=== PATIENT | female | born 2000 | race Caucasian/White ===

== ENCOUNTER → 2023-07-04 07:19 | Outpatient (CLI) | payer OTHER, SELFPAY ==
[2023-07-04 07:48] LABS: Add Manual Diff / Slide Review NO; Basophils Absolute Auto 100 /uL (0-100); Basophils Percent Auto 0.7 % (0-2); Eosinophils Absolute Auto 200 /uL (0-450); Eosinophils Percent Auto 1.9 % (2-4); Hematocrit 37.3 % (36-46); Hemoglobin 12.3 g/dL (12.0-16.0); Lymphocytes Absolute Auto 1800 /uL (1100-4500); Lymphocytes Percent Auto 22.1 % (25-40); Mean Corpuscular HGB Conc 33.1 % (30-36); Mean Corpuscular Hemoglobin 25.8 PG (26-34); Mean Corpuscular Volume 77.9 fL (80-100); Monocytes Absolute Auto 500 /uL (0-900); Monocytes Percent Auto 6.5 % (3-14); Neutrophils Absolute Auto 5600 /uL (1500-7000); Neutrophils Percent Auto 68.8 % (50-75); Platelet Count 288 X10^3/uL (150-400); Red Blood Cell Count 4.78 X10^6/uL (4.0-5.2); White Blood Cell Count 8.1 X10^3/uL (4.5-11.0)
[2023-07-04 08:02] LABS: Alanine Aminotransferase 20 IU/L (<35); Aspartate Aminotransferase 19 IU/L (14-36); BUN Creatinine Ratio 18.3 (6-22); Blood Urea Nitrogen 11 mg/dL (7-17); Estimated Glomerular Filt Rate > 60 mL/min (>60); Uric Acid 4.8 mg/dL (2.5-6.2)
[2023-07-04 08:20] LABS: Free T3, Triiodothyronine Free 3.45 pg/mL (2.77-5.27); Free T4, Direct Thyroxine 0.84 ng/dL (0.78-2.19)
[2023-07-04 08:38] LABS: Hepatitis B Surface Antigen NEGATIVE s/c (NEGATIVE)
[2023-07-04 08:52] LABS: HIV 1 & 2 Ab/Ag 4th Gen Combo NEGATIVE (NEGATIVE); Hep C Virus Ab w/Reflex Quant REACTIVE s/c (NEGATIVE)
[2023-07-05 01:14] LABS: RPR Screen Non Reactive (Non Reactive)
[2023-07-05 10:25] LABS: Varicella IgG Antibody 715 index (Immune >165)
== END ==
PROVIDERS: Specialist; PCP Registered Nurse; Referring Provider Obstetrics & Gynecology; Visit Provider Obstetrics & Gynecology
DX: O13.9 Gestational [pregnancy-induced] hypertension without significant proteinuria, unspecified trimester (principal); E05.90 Thyrotoxicosis, unspecified without thyrotoxic crisis or storm; Z3A.00 Weeks of gestation of pregnancy not specified
CPT/HCPCS: 36415; 80055; 82565; 84439; 84443; 84450; 84460; 84481; 84520; 84550; 86787; 86803; 86850; 86900; 86901; 87086; 87389; 87522

== ENCOUNTER → 2023-07-07 11:00 | Outpatient (CLI) | payer OTHER, SELFPAY ==
[2023-07-07 15:08] LABS: Urine N gonorrhoeae NOT DETECTED
[2023-07-07 15:32] LABS: Urine Chlamydia NOT DETECTED
== END ==
PROVIDERS: PCP Registered Nurse; Visit Provider Specialist
DX: Z34.81 Encounter for supervision of other normal pregnancy, first trimester (principal)
CPT/HCPCS: 87491; 87591

== ENCOUNTER → 2023-07-07 12:41 | Outpatient (CLI) | payer OTHER, SELFPAY ==
--- NOTE | 2023-07-07 | DI.US.S_ITS ---
PROCEDURE: US THYROID INDICATIONS: ABNORMAL TSH TECHNIQUE: Real-time scanning was performed of the thyroid gland, with image documentation. COMPARISON: None. FINDINGS: Right: Thyroid lobe measures 4.8 x 1.7 x 2.5 cm, and is homogeneous in echotexture. Left: Thyroid lobe measures 4.9 x 1.3 x 2.0 cm, and is homogenous in echotexture. Isthmus: 5.0 mm thick. Nodule number: 1 Location: Left inferior Size: 1.4 x 0.6 x 1.2 cm. Composition: Solid Echogenicity: Hypoechoic Shape: wider than tall. Margins: Lobulated and ill-defined Echogenic foci: Macrocalcification Total points: 7 ACR TI-RADS category: 5 Nodule number: 2 Location: Right superior Size: 0.9 x 0.7 x 0.9 cm. Composition: Predominantly solid Echogenicity: Hypoechoic Shape: wider than tall. Margins: Ill-defined Echogenic foci: Non Total points: 4 ACR TI-RADS category: 4 IMPRESSION: Category 5 nodule on the left. FNA advised. Category 4 nodule on the right. Best practice guidelines suggest no follow-up ACR TI-RADS definitions and recommendations: TI-RADS 1 (benign): 0 points. FNA not needed. TI-RADS 2 (not suspicious): 2 points. FNA not needed. TI-RADS 3 (mildly suspicious): 3 points. * FNA if 2.5 cm or larger, follow up if 1.5 cm or larger (at 1, 3, and 5 years). TI-RADS 4 (moderately suspicious): 4-6 points. * FNA if 1.5 cm or larger, follow up if 1 cm or larger (at 1, 2, 3, and 5 years). TI-RADS 5 (highly suspicious): 7 points or more. * FNA if 1 cm or larger, follow up if 0.5 cm or larger (every year for 5 years). Approved by: Fly Jacques M.D. on 07/07/2023 at 20:04
== END ==
PROVIDERS: PCP Registered Nurse; Referring Provider Registered Nurse; Visit Provider Registered Nurse
DX: O99.280 Endocrine, nutritional and metabolic diseases complicating pregnancy, unspecified trimester (principal); E04.2 Nontoxic multinodular goiter; Z3A.00 Weeks of gestation of pregnancy not specified; R79.89 Other specified abnormal findings of blood chemistry
CPT/HCPCS: 76536; 87491; 87591

== ENCOUNTER 2023-07-10 14:15 | Emergency (ER) | payer OTHER, SELFPAY ==
[2023-07-10] VITALS (26 sets, daily range): BP systolic 114–141; BP diastolic 64–95; PULSE 78–92; RESP 12–24; TEMP 36.6; O2SAT 97–100; BMI 46.3
[2023-07-10 14:57] LABS: Add Manual Diff / Slide Review NO; Basophils Absolute Auto 100 /uL (0-100); Basophils Percent Auto 0.8 % (0-2); Eosinophils Absolute Auto 100 /uL (0-450); Eosinophils Percent Auto 1.2 % (2-4); Hematocrit 37.1 % (36-46); Hemoglobin 12.1 g/dL (12.0-16.0); Lymphocytes Absolute Auto 1600 /uL (1100-4500); Lymphocytes Percent Auto 14.8 % (25-40); Mean Corpuscular HGB Conc 32.7 % (30-36); Mean Corpuscular Hemoglobin 25.5 PG (26-34); Monocytes Absolute Auto 400 /uL (0-900); Neutrophils Absolute Auto 8700 /uL (1500-7000); Neutrophils Percent Auto 79.2 % (50-75); Platelet Count 282 X10^3/uL (150-400); Red Blood Cell Count 4.76 X10^6/uL (4.0-5.2); Red Cell Distribution Width 16.2 % (11.6-14.8)
--- NOTE | 2023-07-10 15:00 | DI.RAD.S_ITS ---
PROCEDURE: XR CHEST 1V INDICATIONS: palpitations, +preg 8 weeks reported TECHNIQUE: One view of the chest was acquired. COMPARISON: None. FINDINGS: Surgical changes and devices: None. Lungs and pleura: Lungs are clear. No pleural effusions or pneumothorax. Mediastinum: Mediastinal contours appear normal. Heart size is normal. Bones and chest wall: No suspicious bony lesions. Overlying soft tissues appear unremarkable. IMPRESSION: No acute cardiopulmonary abnormality. Dictated by: Prosper Menchaca M.D. on 07/10/2023 at 15:49 Approved by: Prosper Menchaca M.D. on 07/10/2023 at 15:49
[2023-07-10 15:14] LABS: Appearance Urine UA CLEAR; Bilirubin Urine UA NEGATIVE (NEGATIVE); Color Urine UA YELLOW; Glucose Urine UA NEGATIVE (Negative); Ketones Urine UA NEGATIVE (NEGATIVE); Leukocyte Esterase Urine UA NEGATIVE (NEGATIVE); Nitrite Urine UA NEGATIVE (Negative); Occult Blood Urine UA NEGATIVE (Negative); Protein Urine UA NEGATIVE (Negative); Specific Gravity Urine UA 1.025 (1.000-1.035); Urobilinogen Urine UA 0.2 E.U./dL (0.2)
[2023-07-10 15:14] LABS: Creatine Kinase 172 U/L (30-135)
[2023-07-10 15:16] LABS: Alanine Aminotransferase 22 IU/L (<35); Albumin Globulin Ratio 1.2 (1.0-2.8); Alkaline Phosphatase 113 U/L (38-126); Aspartate Aminotransferase 21 IU/L (14-36); BUN Creatinine Ratio 20.7 (6-22); Bilirubin Total 0.2 mg/dL (0.2-1.3); Blood Urea Nitrogen 12 mg/dL (7-17); Calcium 8.8 mg/dL (8.4-10.2); Carbon Dioxide 23 mmol/L (22-32); Chloride 102 mmol/L (98-107); Estimated Glomerular Filt Rate > 60 mL/min (>60); Globulin 3.4 g/dL (1.7-4.1); Glucose 112 mg/dL (70-100); HEMOLYSIS < 15 (0-50); Potassium 3.4 mmol/L (3.4-5.1); Sodium 133 mmol/L (137-145); Total Protein 7.4 g/dL (6.3-8.2)
[2023-07-10 15:25] LABS: pH Urine UA 5.5 (4.5-8.0)
[2023-07-10 15:27] LABS: Bacteria Urine Few (2-10); Culture Indicated Urine Cult Not Indicated; RBC Urine None Seen (0-5/HPF); Squamous Epithelial Cell Urine 5-10 /HPF (0-5/HPF); WBC Urine 0-1/HPF (0-5/HPF)
[2023-07-10 15:27] LABS: Troponin I < 0.012 ng/mL (0.01-0.034)
[2023-07-10 15:46] LABS: Free T4, Direct Thyroxine 0.78 ng/dL (0.78-2.19)
[2023-07-10 16:00] LABS: Thyroid Stimulating Hormone 0.097 uIU/mL (0.47-4.68)
[2023-07-10] MEDS: ACETAMINOPHEN 325 MG TABLET 975 MG PO (18:38)
[2023-07-10] MEDS: SODIUM CHLORIDE 0.9% 1,000 ML 1000 ML IV (18:39)
--- NOTE | 2023-07-10 18:51 | ED.ARRPALP ---
HPI - Arrhythmia/Palpitations General Chief Complaint: Arrhythmia/Palpitations Stated Complaint: Racing heart earlier Time Seen by Provider: 07/10/23 14:36 Source: patient Mode of arrival: Ambulatory History of Present Illness HPI narrative: Patient 23-year-old female his currently 9 weeks history of gestational hypertension presenting today with palpitations. She reports that she was at work sitting down getting ready to do a facial when she felt like she might pass out. She went encountered her heart rate for 1 minute and it was in the 180s. She monitored it manually reports that it was in the 180s for about 40 minutes and she did not feel very well. She contacted her OB who recommended that she come to the ED for evaluation. She says heart rate improved into the 150s, and now she is in a sinus rhythm in the 80s and 90s. She now has a slight headache she has no abdominal pain or vaginal bleeding. She reports morning sickness with some mild nausea. She is no fever or chills. She also says that she it was recently diagnosed with hyperthyroid she is taking medication she would an ultrasound which did see thyroid nodules. Related Data Home Medications Medication Instructions Recorded Confirmed [id number] 400 mcg-om3 35 mg-dha 25 tab PO 06/25/23 07/07/23 mg-epa 5 mg-fish oil chewable tablet nifedipine 30 mg tablet,extended 30 mg PO DAILY 06/25/23 07/07/23 release pyridoxine (vitamin B6) 100 mg 100 mg PO DAILY PRN nausea 06/25/23 07/07/23 tablet Previous Rx's Medication Instructions Recorded propylthiouracil 50 mg tablet 100 mg PO TID #90 tabs 06/25/23 Allergies Allergy/AdvReac Type Severity Reaction Status Date / Time No Known Drug Allergies Allergy Verified 07/10/23 15:22 Review of Systems Review of Systems ROS Unobtainable: All systems reviewed & are unremarkable except as noted in HPI and below Patient History Medical History Depression (~2012) Hypothyroidism Obesity PIH ( induced hypertension) anxiety Pyelonephritis (~03/2023) Sepsis (~03/2023) Surgical History [place] teeth extracted Family History Father Family estrangement Mother Family estrangement Social History marital status: number of children: 1 household members: spouse and children lives independently: Yes caregiver/support person: Yes housing: apartment pets and animals: Yes (dog) education level: college (some college) 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) current occupational exposures/hazards: No special katy needs: No travel history: over 6 months ago seatbelt use: always water heater temp set < 120 deg: Yes working smoke detector in home: Yes fire extinguisher in home: Yes carbon monox detector in home: Yes firearms in home: No do you feel safe at home: Yes Smoking Status: Never smoker second hand exposure: No alcohol intake: former (1-2/week when not ) substance use type: does not use during the past year weight has: decreased > 10 lbs (~30lb r/t hyperthyroidism) well-balanced diet: daily or most days daily servings fruits/ve or more times/day caffeine: Yes (coffee/tea, usually 1/day) Type(s) of exercise: walking frequency: daily duration: 15-30 minutes/day Smoking Status: Never smoker alcohol intake frequency: 0-2 drinks per day Substance Use Type: does not use Exam Initial Vital Signs Initial Vital Signs: Vital Signs Temperature 97.9 F 07/10/23 14:23 Pulse Rate 80 07/10/23 14:23 Respiratory Rate 20 07/10/23 14:23 Blood Pressure 131/95 H 07/10/23 14:23 Pulse Oximetry 100 07/10/23 14:23 Oxygen Delivery Method Room Air 07/10/23 14:23 GENERAL: Alert pleasant 23-year-old and in no acute distress. HEENT: Head atraumatic,EOMI, pupils reactive, face symmetric, moist mucous membranes CARDIOVASCULAR: Regular rate and rhythm without murmurs, rubs or gallops. RESPIRATORY: Breath sounds equal bilaterally, no wheezes rales or rhonchi. ABDOMEN: Soft, nontender. Normoactive bowel sounds all 4 quadrants. No guarding or rebound. EXTREMITIES: Normal range of motion, no clubbing or edema. Neurovascularly intact NEUROLOGICAL: Alert and oriented x4. SKIN: Warm, dry, no laceration, no petechiae, no rashes or lesions. Course Orders Ordered: Discontinued Medications Acetaminophen (Acetaminophen 325 Mg Tablet) 975 mg PO NOW ONE Stop: 07/10/23 18:34 Last Admin: 07/10/23 18:38 Dose: 975 mg Documented By: WESLY Sodium Chloride (Normal Saline 0.9%) 1,000 mls @ 1,000 mls/hr IV BOLUS ONE Stop: 07/10/23 19:32 Last Infusion: 07/10/23 19:37 Dose: 0 mls/hr Documented By: Admin: 07/10/23 18:39 Dose: 1,000 mls/hr Documented By: WESLY Vital Signs Vital signs: Vital Signs - 8 hr 07/10/23 14:23 07/10/23 14:34 07/10/23 14:38 Temperature 97.9 F Pulse Rate 80 85 Respiratory Rate 20 14 Blood Pressure 131/95 H 135/78 Pulse Oximetry 100 97 Oxygen Delivery Method Room Air 07/10/23 14:45 07/10/23 15:11 07/10/23 15:15 Temperature Pulse Rate 79 84 92 H Respiratory Rate 22 16 21 Blood Pressure Pulse Oximetry 99 98 100 Oxygen Delivery Method 07/10/23 15:30 07/10/23 15:45 07/10/23 16:00 Temperature Pulse Rate 87 88 83 Respiratory Rate 22 19 Blood Pressure Pulse Oximetry 99 98 98 Oxygen Delivery Method 07/10/23 16:03 07/10/23 16:03 07/10/23 16:15 Temperature Pulse Rate 79 80 Respiratory Rate 17 22 Blood Pressure 132/69 Pulse Oximetry 98 97 Oxygen Delivery Method 07/10/23 16:30 07/10/23 16:30 07/10/23 16:39 Temperature Pulse Rate 85 87 Respiratory Rate 18 12 Blood Pressure 140/78 Pulse Oximetry 99 99 Oxygen Delivery Method 07/10/23 16:39 07/10/23 16:45 07/10/23 17:00 Temperature Pulse Rate 90 Respiratory Rate 22 Blood Pressure 141/70 H 128/69 Pulse Oximetry 98 Oxygen Delivery Method 07/10/23 17:00 07/10/23 17:15 07/10/23 17:15 Temperature Pulse Rate 81 87 Respiratory Rate 19 23 Blood Pressure 129/80 Pulse Oximetry 98 100 Oxygen Delivery Method 07/10/23 17:30 07/10/23 17:30 07/10/23 17:45 Temperature Pulse Rate 82 Respiratory Rate 20 Blood Pressure 131/80 122/71 Pulse Oximetry 99 Oxygen Delivery Method 07/10/23 17:45 07/10/23 18:00 07/10/23 18:00 Temperature Pulse Rate 85 78 Respiratory Rate 18 17 Blood Pressure 114/64 Pulse Oximetry 99 98 Oxygen Delivery Method 07/10/23 18:15 07/10/23 18:15 07/10/23 18:30 Temperature Pulse Rate 90 Respiratory Rate 16 Blood Pressure 117/72 126/72 Pulse Oximetry 99 Oxygen Delivery Method 07/10/23 18:30 07/10/23 18:45 07/10/23 18:45 Temperature Pulse Rate 86 81 Respiratory Rate 22 21 Blood Pressure 125/68 Pulse Oximetry 98 99 Oxygen Delivery Method MDM - Arrhythmia/Palpitations Lab Data 07/10/23 14:45 07/10/23 14:45 Labs: Lab Results 07/10/23 07/10/23 07/10/23 Range/Units 14:45 14:45 14:45 WBC 11.0 (4.5-11.0) X10^3/uL RBC 4.76 (4.0-5.2) X10^6/uL Hgb 12.1 (12.0-16.0) g/dL Hct 37.1 (36-46) % MCV 78.0 L (80-100) fL MCH 25.5 L (26-34) PG MCHC 32.7 (30-36) % RDW 16.2 H (11.6-14.8) % Plt Count 282 (150-400) X10^3/uL Neut % (Auto) 79.2 H (50-75) % Lymph % (Auto) 14.8 L (25-40) % [place] % (Auto) 4.0 (3-14) % Eos % (Auto) 1.2 L (2-4) % Baso % (Auto) 0.8 (0-2) % Neut # (Auto) 8700 H (8940-9983) /uL Lymph # (Auto) 1600 (4623-1227) /uL [place] # (Auto) 400 (0-900) /uL Eos # (Auto) 100 (0-450) /uL Baso # (Auto) 100 (0-100) /uL Sodium 133 L (137-145) mmol/L Potassium 3.4 (3.4-5.1) mmol/L Chloride 102 (98-107) mmol/L Carbon Dioxide 23 (22-32) mmol/L BUN 12 (7-17) mg/dL Creatinine 0.58 (0.52-1.04) mg/dL Estimated GFR > 60 (>60) mL/min BUN/Creatinine Ratio 20.7 (6-22) Glucose 112 H (70-100) mg/dL Calcium 8.8 (8.4-10.2) mg/dL Total Bilirubin 0.2 (0.2-1.3) mg/dL AST 21 (14-36) IU/L ALT 22 (<35) IU/L Alkaline Phosphatase 113 (38-126) U/L Total Creatine Kinase (30-135) U/L Troponin I (0.01-0.034) ng/mL Total Protein 7.4 (6.3-8.2) g/dL Albumin 4.0 (3.5-5.0) g/dL Globulin 3.4 (1.7-4.1) g/dL Albumin/Globulin Ratio 1.2 (1.0-2.8) TSH 0.097 L D (0.47-4.68) uIU/mL Free T4 0.78 (0.78-2.19) ng/dL Urine Color Urine Appearance Urine pH (4.5-8.0) Ur Specific [place] (1.000-1.035) Urine Protein (Negative) Urine Glucose (UA) (Negative) g/dL Urine Ketones (NEGATIVE) Urine Occult Blood (Negative) Urine Nitrate (Negative) Urine Bilirubin (NEGATIVE) Urine Urobilinogen (0.2) E.U./dL Ur Leukocyte Esterase (NEGATIVE) Urine RBC (0-5/HPF) Urine WBC (0-5/HPF) Ur Squamous Epith Cells (0-5/HPF) Urine Bacteria (None) Ur Culture Indicated? 07/10/23 07/10/23 Range/Units 14:45 15:02 WBC (4.5-11.0) X10^3/uL RBC (4.0-5.2) X10^6/uL Hgb (12.0-16.0) g/dL Hct (36-46) % MCV (80-100) fL MCH (26-34) PG MCHC (30-36) % RDW (11.6-14.8) % Plt Count (150-400) X10^3/uL Neut % (Auto) (50-75) % Lymph % (Auto) (25-40) % [place] % (Auto) (3-14) % Eos % (Auto) (2-4) % Baso % (Auto) (0-2) % Neut # (Auto) (8455-2531) /uL Lymph # (Auto) (0100-0961) /uL [place] # (Auto) (0-900) /uL Eos # (Auto) (0-450) /uL Baso # (Auto) (0-100) /uL Sodium (137-145) mmol/L Potassium (3.4-5.1) mmol/L Chloride (98-107) mmol/L Carbon Dioxide (22-32) mmol/L BUN (7-17) mg/dL Creatinine (0.52-1.04) mg/dL Estimated GFR (>60) mL/min BUN/Creatinine Ratio (6-22) Glucose (70-100) mg/dL Calcium (8.4-10.2) mg/dL Total Bilirubin (0.2-1.3) mg/dL AST (14-36) IU/L ALT (<35) IU/L Alkaline Phosphatase (38-126) U/L Total Creatine Kinase 172 H (30-135) U/L Troponin I < 0.012 (0.01-0.034) ng/mL Total Protein (6.3-8.2) g/dL Albumin (3.5-5.0) g/dL Globulin (1.7-4.1) g/dL Albumin/Globulin Ratio (1.0-2.8) TSH (0.47-4.68) uIU/mL Free T4 (0.78-2.19) ng/dL Urine Color Yellow Urine Appearance Clear Urine pH 5.5 (4.5-8.0) Ur Specific [place] 1.025 (1.000-1.035) Urine Protein Negative (Negative) Urine Glucose (UA) Negative (Negative) g/dL Urine Ketones Negative (NEGATIVE) Urine Occult Blood Negative (Negative) Urine Nitrate Negative (Negative) Urine Bilirubin Negative (NEGATIVE) Urine Urobilinogen 0.2 (0.2) E.U./dL Ur Leukocyte Esterase Negative (NEGATIVE) Urine RBC None seen (0-5/HPF) Urine WBC 0-1/hpf (0-5/HPF) Ur Squamous Epith Cells 5-10 /hpf H (0-5/HPF) Urine Bacteria Few (2-10) H (None) Ur Culture Indicated? Cult not indicated Point of Care Testing Test Results Positive Urine Dip Bedside Urine Glucose Negative Bedside Urine Bilirubin - Negative Bedside Urine Ketone - Negative Urine Specific [place] 1.025 Bedside Urine Occult Blood - Negative Bedside Urine pH 6.0 Bedside Urine Protein - Negative Bedside Urine Urobilinogen - Negative Bedside Urine Nitrite - Negative Bedside Urine Leukocytes - Negative Esterase Imaging Data Chest x-ray: Radiologist's Impresson: PROCEDURE:? XR CHEST 1V ? INDICATIONS:? palpitations, +preg 8 weeks reported ? TECHNIQUE:? One view of the chest was acquired.? ? COMPARISON:? None. ? FINDINGS:? ? Surgical changes and devices:? None.? ? Lungs and pleura:? Lungs are clear.? No pleural effusions or pneumothorax.? ? Mediastinum:? Mediastinal contours appear normal.? Heart size is normal.? ? Bones and chest wall:? No suspicious bony lesions.? Overlying soft tissues appear unremarkable.? ? IMPRESSION:? No acute cardiopulmonary abnormality. ? ? ? Dictated by: Prosper Menchaca M.D. on 07/10/2023 at 15:49? ECG Data Interpretation: Sinus rhythm rate 81 MT interval 170 QRS [address] changes no T-wave inversions MDM Narrative Medical decision making narrative: Patient is a 23-year-old female currently 9 weeks presenting with palpitations today manual count by herself reports heart rate in the 180s for 40 minutes. Her TSH is actually improving an almost normal I do not suspect it is related to her thyroid. I suspect that she may have an episode of SVT. She is been in sinus rhythm here blood work is overall reassuring. Strongly encourage her to get a Holter monitor. If it returns she is encouraged to come to the ED so we can see the rhythm. She is having a mild headache given IV fluids and Tylenol. No evidence of infection. She is followed closely with Ob. Blood pressures are stable. Discharge Plan Departure Patient Disposition: Home Clinical Impression: Palpitations Instructions: DI for Paroxysmal Supraventricular Tachycardia, DI for Palpitations Activity Restrictions/Additional Instructions: *You have been diagnosed with heart palpitations *What to do: At this time I suspect you had something called SVT. If it happens again return to the ED so we can get it on the monitor. You do need do need a Holter monitor which can be set up with your OB or PCP. Things to try at home would be a wrist monitor. You may also try and bear down to see if your heart rate slows down. *Continue to take medications as directed *Follow up with your primary care provider in 2-3 days or call [phone] *Return to ER if you should have increased palpitations dizziness lightheadedness persistent heart rate greater than 130 for more than 30 minutes return to ED or any new, worsening or concerning symptoms Prescriptions: No Action propylthiouracil 50 mg tablet 100 mg PO TID Qty: 90 2RF [id number] oil 400 mcg-35 mg -25 mg-5 mg tablet,chewable PO pyridoxine (vitamin B6) 100 mg tablet 100 mg PO DAILY PRN (Reason: nausea) nifedipine 30 mg tablet extended release 30 mg PO DAILY Referrals: Caterina Silva ARNP [Primary Care Provider] - Stand Alone Forms: Patient Portal/API
== END 2023-07-10 19:40 | disposition home or self-care (01) ==
PROVIDERS: Emergency Medicine; Nurse Practitioner Critical Care Medicine; Emergency Provider Emergency Medicine; PCP Registered Nurse
DX: O26.91 Pregnancy related conditions, unspecified, first trimester (principal); R00.2 Palpitations; Z3A.09 9 weeks gestation of pregnancy
CPT/HCPCS: 36415; 71045; 80053; 81001; 81003; 81025; 82550; 84439; 84443; 84484; 85025; 93005; 93010; 96360; 99284

== ENCOUNTER → 2023-07-28 13:07 | Outpatient (CLI) | payer OTHER, SELFPAY ==
--- NOTE | 2023-07-28 | PATH_ITS ---
Note [facility] Accession Number: [id number] TESTS RESULT FLAG UNITS REF RANGE LAB Clinician Provided Cytology Information No. of containers..02 Previously Prepared Cytology Slide 35 Unknown Storage/container code(s) Source: [A] 01 LEFT THYROID NODULE DIAGNOSIS: [A] 01 LEFT THYROID NODULE SUSPICIOUS FOR MALIGNANCY. [place] CATEGORY V. SUSPICIOUS FOR PAPILLARY CARCINOMA. SPECIMEN CONSISTS OF FOLLICULAR CELLS WITH NUCLEAR ENLARGEMENT, NUCLEAR PALLOR WITH GROOVES. INTRANUCLEAR PSEUDOINCLUSIONS ARE PRESENT. THIS PATTERN IS SUSPICIOUS FOR PAPILLARY CARCINOMA. Pathologist ICD10: 01 R89.6 Signed out by: Mary Kay Palma MD, Pathologist NPI- [id number] Performed by: Jarrod Diggs, Hide Sorter ([facility]) Gross description: 30 CC, COLORLESS, CLEAR RECIEVED: IN CYTOLYT WITH 6 ALCOHOL FIXED AND 6 QUICK STAINED SLIDES ALSO 1 RNA VIAL WAS RECEIVED.VO /VDU 07/29/2023 0715 Local FLAG LEGEND: L-Low Normal,H-High Normal,LL-Alert Low,HH-Alert High <-Panic Low,>-Panic High,A-Abnormal,AA-Critical Abnormal Performed at: 01 =Z [facility] [address], [place] [address] Chris Kelly MD, Performed at: [facility] [address], [place], [place] [id number] MD Chris Kelly MD Phone: [phone]
--- NOTE | 2023-07-28 | DI.US.S_ITS ---
PROCEDURE: US FINE NEEDLE ASPIRATION INDICATIONS: THYROID NODULE TECHNIQUE: The indications, alternatives, benefits, risks, and complications of the procedure were explained to the patient. Written informed consent was obtained and placed in the chart. The thyroid region was examined sonographically and a site was chosen for ultrasound guided percutaneous sampling. The skin was prepared and draped in the usual fashion, and anesthetized with 1% lidocaine infiltrated from the skin down to the thyroid gland. Multiple passes were then performed, with contents emptied into an appropriate pathology specimen container. A bandage was applied to the area of access at completion of the study. COMPARISON: [facility], US, US THYROID, 07/07/2023, 13:03. FINDINGS: Location(s) of lesion(s) sampled: Left lobe inferior, nodule #1 [place]: 25 gauge hypodermic needles. Number of passes: 7 Medications: 1% lidocaine for local anaesthesia. Complications: None. IMPRESSION: Successful ultrasound-guided thyroid nodule fine needle aspiration, with cytology results pending. Please see chart below for management recommendations based on cytology results. [facility] ReportingRecommendationsNon-diagnostic* Repeat US-guided FNA, with on-site cytology evaluation if possible. * Repeated non-diagnostic nodules without high suspicion US features: close observation vs surgical consult. * Consider surgery if nodule has high suspicion US features, grows >20% in 2 dimensions on followup, or patient has clinical risk factors for malignancy. Benign* If nodule has high suspicion US features: repeat US and FNA within 12 months. * If nodule has low to intermediate suspicion US features: repeat US at 12-24 months. If nodule grows (20% increase in at least 2 dimensions, with minimal increase of 2 mm or >50% change in volume), or development of new suspicious US features, then repeat FNA or continue followup. * If nodule has very low suspicion US features: followup US at >24 months. Atypia of undetermined significance, follicular lesion of undetermined significanceRepeat FNA, molecular testing, followup US, or surgical consult.Follicular neoplasm, suspicious for follicular neoplasmSurgical consult; also consider molecular testing. Suspicious for malignancySurgical consult.MalignantSurgical consult. Dictated by: Shon Gupta M.D. on 07/28/2023 at 14:56 Approved by: Shon Gupta M.D. on 07/28/2023 at 14:58
== END ==
LOC: US 13:08
PROVIDERS: PCP Registered Nurse; Referring Provider Registered Nurse; Visit Provider Registered Nurse
DX: E05.10 Thyrotoxicosis with toxic single thyroid nodule without thyrotoxic crisis or storm (principal)
CPT/HCPCS: 10005

== ENCOUNTER → 2023-08-05 10:20 | Outpatient (CLI) | payer OTHER, SELFPAY ==
[2023-08-05 12:22] LABS: Free T4, Direct Thyroxine 0.96 ng/dL (0.78-2.19)
[2023-08-05 12:36] LABS: Thyroid Stimulating Hormone 0.535 uIU/mL (0.47-4.68)
== END ==
PROVIDERS: PCP Registered Nurse; Referring Provider Obstetrics & Gynecology; Visit Provider Obstetrics & Gynecology
DX: E05.90 Thyrotoxicosis, unspecified without thyrotoxic crisis or storm (principal)
CPT/HCPCS: 36415; 84439; 84443

== ENCOUNTER → 2023-09-02 11:55 | Outpatient (CLI) | payer OTHER, SELFPAY ==
[2023-09-04 21:40] LABS: AFP Value 24.2 ng/mL (.); Gest Age on Col Date 16.4 weeks (.); Insulin Dep Diabetes No (.); OSBR Risk 1IN 10000 (.); Results Report (.); Test Results *Screen Negative* (.)
== END ==
PROVIDERS: PCP Registered Nurse; Referring Provider Specialist; Visit Provider Specialist
DX: Z34.92 Encounter for supervision of normal pregnancy, unspecified, second trimester (principal); Z3A.16 16 weeks gestation of pregnancy
CPT/HCPCS: 36415; 82105

== ENCOUNTER 2023-10-20 12:28 | Emergency (ER) | payer OTHER, SELFPAY ==
[2023-10-20 12:37] VITALS: BP 143/77; PULSE 100; RESP 16; TEMP 36; O2SAT 98; BMI 45.9
[2023-10-20] MEDS: SODIUM CHLORIDE 0.9% 1,000 ML 1000 ML IV (12:52)
[2023-10-20] MEDS: ONDANSETRON 4 MG ODT SL (12:52)
[2023-10-20 13:13] LABS: Add Manual Diff / Slide Review NO; Basophils Absolute Auto 0 /uL (0-100); Basophils Percent Auto 0.3 % (0-2); Eosinophils Absolute Auto 0 /uL (0-450); Eosinophils Percent Auto 0.4 % (2-4); Hematocrit 38.2 % (36-46); Hemoglobin 13.5 g/dL (12.0-16.0); Lymphocytes Absolute Auto 900 /uL (1100-4500); Lymphocytes Percent Auto 10.1 % (25-40); Mean Corpuscular HGB Conc 35.3 % (30-36); Mean Corpuscular Hemoglobin 29.5 PG (26-34); Mean Corpuscular Volume 83.4 fL (80-100); Monocytes Absolute Auto 200 /uL (0-900); Monocytes Percent Auto 2.9 % (3-14); Neutrophils Absolute Auto 7500 /uL (1500-7000); Neutrophils Percent Auto 86.3 % (50-75); Platelet Count 199 X10^3/uL (150-400); Red Blood Cell Count 4.58 X10^6/uL (4.0-5.2); Red Cell Distribution Width 15.1 % (11.6-14.8); White Blood Cell Count 8.7 X10^3/uL (4.5-11.0)
[2023-10-20 13:24] LABS: Alanine Aminotransferase 28 IU/L (<35); Albumin 3.9 g/dL (3.5-5.0); Albumin Globulin Ratio 1.1 (1.0-2.8); Alkaline Phosphatase 85 U/L (38-126); Aspartate Aminotransferase 24 IU/L (14-36); BUN Creatinine Ratio 14.3 (6-22); Bilirubin Total 0.6 mg/dL (0.2-1.3); Blood Urea Nitrogen 8 mg/dL (7-17); Calcium 8.9 mg/dL (8.4-10.2); Carbon Dioxide 20 mmol/L (22-32); Chloride 108 mmol/L (98-107); Estimated Glomerular Filt Rate > 60 mL/min (>60); Globulin 3.6 g/dL (1.7-4.1); Glucose 96 mg/dL (70-100); HEMOLYSIS < 15 (0-50); Lipase 44 U/L (23-300); Potassium 3.6 mmol/L (3.4-5.1); Sodium 136 mmol/L (137-145); Total Protein 7.5 g/dL (6.3-8.2)
--- NOTE | 2023-10-20 13:58 | ED.NAVMDI ---
HPI - Nausea/Vomiting/Diarrhea <Jens Nuñez PA-C - Last Filed: 10/20/23 16:22> General Chief complaint: Nausea/Vomiting/Diarrhea Stated complaint: nausea vommiting Time Seen by Provider: 10/20/23 13:01 Source: patient Mode of arrival: Ambulatory History of Present Illness HPI Narrative: This is a 23-year-old female presenting to the emergency department who is 20 weeks due to acute onset nausea and vomiting for the last day. She was states that her family has norovirus she suspects this is similar. She states that she vomited ?a lot? of times. Denies any blood in the vomit. Denies any distinct abdominal pain, abdominal cramping, pelvic pain, vaginal bleeding, fevers, or any other concerning signs or symptoms. Related Data Home Medications Medication Instructions Recorded Confirmed [id number] 400 mcg-om3 35 mg-dha 25 tab PO 06/25/23 10/31/23 mg-epa 5 mg-fish oil chewable tablet pyridoxine (vitamin B6) 100 mg 100 mg PO DAILY PRN nausea 06/25/23 10/31/23 tablet Previous Rx's Medication Instructions Recorded propylthiouracil 50 mg tablet 100 mg (2 x 50 mg) PO TID #90 tabs 06/25/23 nifedipine 30 mg tablet,extended 30 mg PO BID #60 tabs 09/10/23 release ondansetron 4 mg disintegrating 4 mg PO Q6H PRN nausea and 10/20/23 tablet vomiting #20 tabs Allergies Allergy/AdvReac Type Severity Reaction Status Date / Time No Known Drug Allergies Allergy Verified 10/31/23 16:04 Review of Systems <Jens Nuñez PA-C - Last Filed: 10/20/23 16:22> Review of Systems Narrative: GENERAL: Denies chills, fatigue, malaise, fever, sweats. HEENT: Denies sinus pain, ear pain, sore throat, difficulty swallowing, dizziness. RESPIRATORY: Denies dyspnea, cough, wheezing, hemoptysis, sputum. CARDIOVASCULAR: Denies chest pain, palpitations, orthopnea, edema, GASTROINTESTINAL: Reports nausea and vomiting, denies abdominal pain, diarrhea, constipation, melena. : Denies dysuria, frequency, incontinence, hematuria, urinary retention. MUSCULOSKELETAL: denies weakness, joint pain, or bony pain SKIN: Denies rash, skin lesions, or other NEUROLOGIC: Denies weakness, headache, numbness, change in speech, confusion, seizures, incoordination. PSYCHIATRIC: No concerning psychosocial issues. 12 point review of systems is negative except for those stated above Patient History <Jens Nuñez PA-C - Last Filed: 10/20/23 16:22> Medical History (Updated 10/26/23 @ 14:14 by Jessica Giraldo MD) Eczema (~1998) Asthma (~2001) Anxiety (~2021) Pyelonephritis (~03/2023) Sepsis (~03/2023) Obesity anxiety Depression (~2012) Hypothyroidism PIH ( induced hypertension) Surgical History [place] teeth extracted Family History (Updated 07/16/23 @ 20:46 by Cara Khanna) Father Family estrangement Mother Family estrangement Grandmother Hypertension Mental health problem Social History marital status: number of children: 1 household members: spouse and children lives independently: Yes caregiver/support person: Yes housing: apartment pets and animals: Yes (dog) education level: college (some college) 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) current occupational exposures/hazards: No special katy needs: No travel history: over 6 months ago seatbelt use: always water heater temp set < 120 deg: Yes working smoke detector in home: Yes fire extinguisher in home: Yes carbon monox detector in home: Yes firearms in home: No do you feel safe at home: Yes Smoking Status: Never smoker second hand exposure: No alcohol intake: former (1-2/week when not ) substance use type: does not use during the past year weight has: decreased > 10 lbs (~30lb r/t hyperthyroidism) well-balanced diet: daily or most days daily servings fruits/ve or more times/day caffeine: Yes (coffee/tea, usually 1/day) Type(s) of exercise: walking frequency: daily duration: 15-30 minutes/day Smoking Status: Never smoker alcohol intake frequency: 0-2 drinks per day Substance Use Type: does not use Exam <Jens Nuñez PA-C - Last Filed: 10/20/23 16:22> Narrative Exam Narrative: GENERAL: Well-developed patient, in mild distress. HEAD: Atraumatic. Normocephalic. EYES: Pupils equal round and reactive. Extraocular motions intact. No scleral icterus. No injection or drainage. ENT: Nose without bleeding, purulent drainage. Throat without erythema, tonsillar hypertrophy or exudate. Airway patent. NECK: Trachea midline. Non tender CARDIOVASCULAR: Regular rate and rhythm without murmurs, gallops, or rubs. RESPIRATORY: Clear to auscultation. Breath sounds equal bilaterally. No wheezes, rales, or rhonchi. GASTROINTESTINAL: Abdomen soft, non-tender, nondistended. EXTREMITIES: No edema or joint tenderness. BACK: Nontender without deformity or crepitance. No flank tenderness. NEURO: AOx3. SKIN: No rash or erythema of visible areas Initial Vital Signs Initial Vital Signs: Vital Signs Temperature 96.8 F L 10/20/23 12:37 Pulse Rate 100 H 10/20/23 12:37 Respiratory Rate 16 10/20/23 12:37 Blood Pressure 143/77 H 10/20/23 12:37 Pulse Oximetry 98 10/20/23 12:37 Oxygen Delivery Method Room Air 10/20/23 12:37 <Harvey Conklin MD - Last Filed: 11/03/23 12:55> Initial Vital Signs Initial Vital Signs: Vital Signs Temperature 96.8 F L 10/20/23 12:37 Pulse Rate 100 H 10/20/23 12:37 Respiratory Rate 16 10/20/23 12:37 Blood Pressure 143/77 H 10/20/23 12:37 Pulse Oximetry 98 10/20/23 12:37 Oxygen Delivery Method Room Air 10/20/23 12:37 Course <Jens Nuñez PA-C - Last Filed: 10/20/23 16:22> Orders Ordered: Discontinued Medications Sodium Chloride (Normal Saline 0.9%) 1,000 mls @ 1,000 mls/hr IV BOLUS ONE Stop: 10/20/23 13:45 Last Infusion: 10/20/23 13:47 Dose: Infused Documented By: Admin: 10/20/23 12:52 Dose: 1,000 mls/hr Documented By: INDY Ondansetron HCl (Ondansetron 4 Mg/2 Ml Inj) 4 mg IV NOW PRN PRN Reason: Nausea And Vomiting Ondansetron HCl (Ondansetron 4 Mg Odt) 4 mg SL NOW ONE Stop: 10/20/23 12:47 Last Admin: 10/20/23 12:52 Dose: 4 mg Documented By: INDY Vital Signs Vital signs: Vital Signs - 8 hr 10/20/23 12:37 Temperature 96.8 F L Pulse Rate 100 H Respiratory Rate 16 Blood Pressure 143/77 H Pulse Oximetry 98 Oxygen Delivery Method Room Air <Harvey Conklin MD - Last Filed: 11/03/23 12:55> Orders Ordered: Discontinued Medications Sodium Chloride (Normal Saline 0.9%) 1,000 mls @ 1,000 mls/hr IV BOLUS ONE Stop: 10/20/23 13:45 Last Infusion: 10/20/23 13:47 Dose: Infused Documented By: Admin: 10/20/23 12:52 Dose: 1,000 mls/hr Documented By: INDY Ondansetron HCl (Ondansetron 4 Mg/2 Ml Inj) 4 mg IV NOW PRN PRN Reason: Nausea And Vomiting Ondansetron HCl (Ondansetron 4 Mg Odt) 4 mg SL NOW ONE Stop: 10/20/23 12:47 Last Admin: 10/20/23 12:52 Dose: 4 mg Documented By: INDY Vital Signs Vital signs: Vital Signs - 8 hr 10/20/23 12:37 Temperature 96.8 F L Pulse Rate 100 H Respiratory Rate 16 Blood Pressure 143/77 H Pulse Oximetry 98 Oxygen Delivery Method Room Air MDM - Nausea/Vomiting/Diarrhea <Jens Nuñez PA-C - Last Filed: 10/20/23 16:22> Lab Data 10/20/23 13:03 10/20/23 13:03 Labs: Lab Results 10/20/23 10/20/23 Range/Units 13:03 14:15 WBC 8.7 (4.5-11.0) X10^3/uL RBC 4.58 (4.0-5.2) X10^6/uL Hgb 13.5 (12.0-16.0) g/dL Hct 38.2 (36-46) % MCV 83.4 (80-100) fL MCH 29.5 (26-34) PG MCHC 35.3 (30-36) % RDW 15.1 H (11.6-14.8) % Plt Count 199 (150-400) X10^3/uL Neut % (Auto) 86.3 H (50-75) % Lymph % (Auto) 10.1 L (25-40) % [place] % (Auto) 2.9 L (3-14) % Eos % (Auto) 0.4 L (2-4) % Baso % (Auto) 0.3 (0-2) % Neut # (Auto) 7500 H (7489-8996) /uL Lymph # (Auto) 900 L (7429-3989) /uL [place] # (Auto) 200 (0-900) /uL Eos # (Auto) 0 (0-450) /uL Baso # (Auto) 0 (0-100) /uL Sodium 136 L (137-145) mmol/L Potassium 3.6 (3.4-5.1) mmol/L Chloride 108 H (98-107) mmol/L Carbon Dioxide 20 L (22-32) mmol/L BUN 8 (7-17) mg/dL Creatinine 0.56 (0.52-1.04) mg/dL Estimated GFR > 60 (>60) mL/min BUN/Creatinine Ratio 14.3 (6-22) Glucose 96 (70-100) mg/dL Calcium 8.9 (8.4-10.2) mg/dL Total Bilirubin 0.6 (0.2-1.3) mg/dL AST 24 (14-36) IU/L ALT 28 (<35) IU/L Alkaline Phosphatase 85 (38-126) U/L Total Protein 7.5 (6.3-8.2) g/dL Albumin 3.9 (3.5-5.0) g/dL Globulin 3.6 (1.7-4.1) g/dL Albumin/Globulin Ratio 1.1 (1.0-2.8) Lipase 44 (23-300) U/L Ur Bilirubin Confirm Negative (Negative) Urine RBC None seen (0-5/HPF) Urine WBC 5-10/hpf H (0-5/HPF) Ur Squamous Epith Cells 5-10 /hpf H (0-5/HPF) Amorphous Sediment 1+ Urine Bacteria Occasional (0-1) (None) Urine Mucus 1+ H (Negative) Ur Culture Indicated? Specimen cultured Urine Dip Bedside Urine Glucose Negative Bedside Urine Bilirubin + 1 Bedside Urine Ketone ++ 40 Urine Specific [place] 1.030 Bedside Urine Occult Blood - Negative Bedside Urine pH 5.5 Bedside Urine Protein - Negative Bedside Urine Urobilinogen - Negative Bedside Urine Nitrite - Negative Bedside Urine Leukocytes - Negative Esterase MDM Narrative Medical decision making narrative: MDM * differential diagnosis includes but not limited to gastroenteritis, norovirus, small-bowel obstruction * Prior records reviewed: Patient has not been here for similar symptoms past * My lab interpretation: Lab work we will, leukocytosis, no significant electrolyte abnormalities * My imgaing interpretation: None obtained * Clinical Decision Rules/Scores evaluated: None * Independent discussions with: None ED Course: This is a 23-year-old female presents emergency department due to nausea and vomiting due to suspected norovirus. She is [address] Giraldo was contacted and informed that the patient was here who recommended ondansetron which was given for the patient. The patient was also given fluids. Her lab work today was unremarkable. Patient felt better after the Zofran and fluids given in. Dr. Giraldo called in prescription for Zofran to her pharmacy. heart tones were within normal limits. Shared Decision Making: Discussed plan with patient who is comfortable with the plan Social Considerations: None Disposition: Discharged to home <Harvey Conklin MD - Last Filed: 11/03/23 12:55> Lab Data Labs: Lab Results 10/20/23 10/20/23 Range/Units 13:03 14:15 WBC 8.7 (4.5-11.0) X10^3/uL RBC 4.58 (4.0-5.2) X10^6/uL Hgb 13.5 (12.0-16.0) g/dL Hct 38.2 (36-46) % MCV 83.4 (80-100) fL MCH 29.5 (26-34) PG MCHC 35.3 (30-36) % RDW 15.1 H (11.6-14.8) % Plt Count 199 (150-400) X10^3/uL Neut % (Auto) 86.3 H (50-75) % Lymph % (Auto) 10.1 L (25-40) % [place] % (Auto) 2.9 L (3-14) % Eos % (Auto) 0.4 L (2-4) % Baso % (Auto) 0.3 (0-2) % Neut # (Auto) 7500 H (9807-7494) /uL Lymph # (Auto) 900 L (9552-5015) /uL [place] # (Auto) 200 (0-900) /uL Eos # (Auto) 0 (0-450) /uL Baso # (Auto) 0 (0-100) /uL Sodium 136 L (137-145) mmol/L Potassium 3.6 (3.4-5.1) mmol/L Chloride 108 H (98-107) mmol/L Carbon Dioxide 20 L (22-32) mmol/L BUN 8 (7-17) mg/dL Creatinine 0.56 (0.52-1.04) mg/dL Estimated GFR > 60 (>60) mL/min BUN/Creatinine Ratio 14.3 (6-22) Glucose 96 (70-100) mg/dL Calcium 8.9 (8.4-10.2) mg/dL Total Bilirubin 0.6 (0.2-1.3) mg/dL AST 24 (14-36) IU/L ALT 28 (<35) IU/L Alkaline Phosphatase 85 (38-126) U/L Total Protein 7.5 (6.3-8.2) g/dL Albumin 3.9 (3.5-5.0) g/dL Globulin 3.6 (1.7-4.1) g/dL Albumin/Globulin Ratio 1.1 (1.0-2.8) Lipase 44 (23-300) U/L Ur Bilirubin Confirm Negative (Negative) Urine RBC None seen (0-5/HPF) Urine WBC 5-10/hpf H (0-5/HPF) Ur Squamous Epith Cells 5-10 /hpf H (0-5/HPF) Amorphous Sediment 1+ Urine Bacteria Occasional (0-1) (None) Urine Mucus 1+ H (Negative) Ur Culture Indicated? Specimen cultured Urine Dip Bedside Urine Glucose Negative Bedside Urine Bilirubin + 1 Bedside Urine Ketone ++ 40 Urine Specific [place] 1.030 Bedside Urine Occult Blood - Negative Bedside Urine pH 5.5 Bedside Urine Protein - Negative Bedside Urine Urobilinogen - Negative Bedside Urine Nitrite - Negative Bedside Urine Leukocytes - Negative Esterase Discharge Plan Departure Patient Disposition: Home Clinical Impression: Acute vomiting Activity Restrictions/Additional Instructions: Thank you for coming to the [facility] Emergency Department today. Your lab work today was very reassuring. There were no significant electrolyte abnormalities or evidence of infection. The norovirus is viral and should improve over time. Dr. Giraldo as already sent a prescription for Zofran to your pharmacy. I hope you feel better soon. Please follow up with your primary care provider within a week if your symptoms continue. If you do not have a primary care provider please contact the [facility] Resource line at [phone]. They will ask some questions about your medical history and help you get set up with a provider in the community. Prescriptions: No Action propylthiouracil 50 mg tablet 100 mg PO TID Qty: 90 2RF nifedipine 30 mg tablet extended release 30 mg PO BID Qty: 60 2RF ondansetron 4 mg tablet,disintegrating 4 mg PO Q6H PRN (Reason: nausea and vomiting) Qty: 20 1RF [id number] oil 400 mcg-35 mg -25 mg-5 mg tablet,chewable PO pyridoxine (vitamin B6) 100 mg tablet 100 mg PO DAILY PRN (Reason: nausea) Referrals: Caterina Silva ARNP [Primary Care Provider] - Stand Alone Forms: Patient Portal/API ED Sign-out <Harvey Conklin MD - Last Filed: 11/03/23 12:55> Cosign ED Attending Sridevi Attestation: I was immediately available in the department for consultation. This documentation has been reviewed and I agree with assessment and plan. Supervised by Harvey Conklin MD
[2023-10-20 14:50] LABS: Amorphous Sediment Urine 1+; Bacteria Urine Occasional (0-1); Culture Indicated Urine Specimen Cultured; Ictotest Urine Negative (Negative); Mucus Urine 1+ (Negative); RBC Urine None Seen (0-5/HPF); Squamous Epithelial Cell Urine 5-10 /HPF (0-5/HPF); WBC Urine 5-10/HPF (0-5/HPF)
== END 2023-10-20 14:17 | disposition home or self-care (01) ==
PROVIDERS: Emergency Medicine; Emergency Provider Physician Assistant Medical; PCP Registered Nurse
DX: O21.9 Vomiting of pregnancy, unspecified (principal); Z3A.20 20 weeks gestation of pregnancy
CPT/HCPCS: 36415; 80053; 81003; 81015; 83690; 85025; 87086; 99284

== ENCOUNTER → 2023-10-22 16:44 | Outpatient (CLI) | payer OTHER, SELFPAY ==
--- NOTE | 2023-10-22 16:46 | DI.US.S_ITS ---
PROCEDURE: US OB LIMITED INDICATIONS: GROWTH OUTSIDE/PRIOR DATING DATA: Last menstrual period (LMP): Not reported. LMP-based estimated date of delivery (EVELYN): 02/14/2024 First dating scan (date and location): 07/07/2023 Estimated date of delivery (EVELYN) from first dating scan: 02/13/2024 The calculations are made using the working EVELYN of 02/14/2024. TECHNIQUE: Real-time scanning was performed of the fetus for biophysical profile, with image documentation. Endovaginal scanning: Not indicated COMPARISON: [facility], , OB >= 14 WEEKS FETUS, 09/02/2023, 11:44. [facility], , US OB >= 14 WEEKS FETUS, 10/13/2023, 15:40. FINDINGS: General: A single living intrauterine gestation is present. Presentation: Vertex Placenta: Placental position is posterior, without previa. Amniotic fluid index: 14.8 cm, normal range is 5-24 cm. Single deepest vertical pocket is 4.2 cm. heart rate: 130 beats per minute. Maternal cervical canal: 3.6 cm long. Normal lower limit is 2.5 cm. BPD: 6.0 cm, 24 weeks, 2 days. HC: 21.7 cm, 23 weeks, 6 days. AC: 19.1 cm, 23 weeks, 6 days. FL: 4.2 cm, 23 weeks, 6 days. Estimated gestational age based on current study: 24 weeks, 0 day. Estimated gestational age from initial scan: 23 weeks, 4 days. Estimated weight: 636 g, 56%. IMPRESSION: 1. Single live intrauterine gestation with fetus in vertex presentation. heart rate is 130 beats per minute. Normal amount of amniotic fluid. HIMANSHU measures 14.8 cm. 2. Normal growth. Estimated weight is at 56%. 3. Placenta position is posterior, no placenta previa. We strive to produce accurate, complete, and clear reports of imaging services. To assist us in improving patient care, this report was composed using standard report templates and voice recognition software. Therefore, it may contain abnormal punctuation, insertions and/or omissions. Occasional wrong-word or sound-alike substitutions may occur. Though we review the report and make efforts to correct it, we do recommend that the report be read carefully in proper context to recognize any text inaccuracies. Dictated by: Memo Díaz M.D. on 10/23/2023 at 9:42 Approved by: Memo Díaz M.D. on 10/23/2023 at 9:47
== END ==
PROVIDERS: PCP Registered Nurse; Referring Provider Obstetrics & Gynecology; Visit Provider Obstetrics & Gynecology
DX: Z3A.24 24 weeks gestation of pregnancy; O16.2 Unspecified maternal hypertension, second trimester
CPT/HCPCS: 76815

== ENCOUNTER → 2023-11-06 08:09 | Outpatient (CLI) | payer OTHER, SELFPAY ==
[2023-11-06 10:17] LABS: Hematocrit 33.4 % (36-46); Hemoglobin 11.7 g/dL (12.0-16.0)
[2023-11-06 10:35] LABS: GTT (PREG) 1 Hour PP 50gm Dose 134 mg/dL (76-139)
== END ==
PROVIDERS: PCP Registered Nurse; Referring Provider Obstetrics & Gynecology; Visit Provider Obstetrics & Gynecology
DX: Z34.82 Encounter for supervision of other normal pregnancy, second trimester (principal); Z3A.26 26 weeks gestation of pregnancy
CPT/HCPCS: 36415; 82950; 85014; 85018; 86850

== ENCOUNTER 2023-11-13 09:51 | Observation (INO) | payer OTHER, SELFPAY ==
[2023-11-13 10:57] LABS: Add Manual Diff / Slide Review NO; Basophils Absolute Auto 100 /uL (0-100); Basophils Percent Auto 0.7 % (0-2); Eosinophils Absolute Auto 100 /uL (0-450); Eosinophils Percent Auto 0.6 % (2-4); Hematocrit 35.7 % (36-46); Hemoglobin 12.4 g/dL (12.0-16.0); Lymphocytes Absolute Auto 1500 /uL (1100-4500); Lymphocytes Percent Auto 17.4 % (25-40); Mean Corpuscular HGB Conc 34.6 % (30-36); Mean Corpuscular Hemoglobin 29.5 PG (26-34); Mean Corpuscular Volume 85.3 fL (80-100); Monocytes Absolute Auto 500 /uL (0-900); Monocytes Percent Auto 5.9 % (3-14); Neutrophils Absolute Auto 6600 /uL (1500-7000); Neutrophils Percent Auto 75.4 % (50-75); Platelet Count 181 X10^3/uL (150-400); Red Blood Cell Count 4.19 X10^6/uL (4.0-5.2); Red Cell Distribution Width 13.7 % (11.6-14.8); White Blood Cell Count 8.8 X10^3/uL (4.5-11.0)
[2023-11-13 11:10] LABS: Aspartate Aminotransferase 26 IU/L (14-36); Blood Urea Nitrogen 7 mg/dL (7-17); Estimated Glomerular Filt Rate > 60 mL/min (>60); Uric Acid 4.5 mg/dL (2.5-6.2)
[2023-11-13 11:47] LABS: Creatinine Urine Random 130.1 mg/dL
[2023-11-13 11:50] LABS: Protein (Total) Urine Random < 5 mg/dL (0-12); Protein Creatinine Ratio Urine 0.03 GRAM/24H
== END 2023-11-13 12:00 | disposition home or self-care (01) ==
PROVIDERS: Admitting Provider Obstetrics & Gynecology; PCP Registered Nurse; Referring Provider Obstetrics & Gynecology; Visit Provider Obstetrics & Gynecology
DX: Z36.9 Encounter for antenatal screening, unspecified (principal)
CPT/HCPCS: 59025; 82570; 84156; 84450; 84550; 85025; G0378; G0379

== ENCOUNTER → 2023-11-28 16:44 | Outpatient (CLI) | payer OTHER, SELFPAY ==
[2023-12-01 10:07] LABS: Candida species Negative (Negative); Gardnerella vaginalis Positive (Negative); Trichomoas vaginalis Negative (Negative)
== END ==
PROVIDERS: PCP Registered Nurse; Visit Provider Obstetrics & Gynecology
DX: N89.8 Other specified noninflammatory disorders of vagina (principal)
CPT/HCPCS: 87480; 87510; 87660

== ENCOUNTER 2023-12-22 09:42 | Outpatient (CLI) | payer OTHER, SELFPAY | END 2023-12-22 10:30 | disposition home or self-care (01) | LOC: LABOR 10:32 → OB 12-26 10:25 | PROVIDERS: PCP Registered Nurse; Referring Provider Obstetrics & Gynecology; Visit Provider Obstetrics & Gynecology | DX: O13.3 Gestational [pregnancy-induced] hypertension without significant proteinuria, third trimester (principal); Z3A.32 32 weeks gestation of pregnancy | CPT/HCPCS: 59025; G0378; G0379 ==

== ENCOUNTER 2023-12-30 12:47 | Outpatient (CLI) | payer OTHER, SELFPAY ==
--- NOTE | 2023-12-30 13:32 | PM.OBTRLD ---
Visit Information Visit Information Date of evaluation: 12/30/23 On-call OB Provider: Reba Benítez Reason for Evaluation: Yes non-stress test non-stress test reason: hypertension/pre-eclampsia Vital Signs Vital Signs: Blood pressure 119/62, pulse 78, temperature 36.4? COUNT INCLUDES THE [facility] Medical History (Updated 12/30/23 @ 13:33 by Reab Benítez MD) Eczema (~1998) Asthma (~2001) Anxiety (~2021) Pyelonephritis (~03/2023) Sepsis (~03/2023) anxiety Depression (~2012) Hypothyroidism PIH ( induced hypertension) Surgical History [place] teeth extracted Family History (Updated 07/16/23 @ 20:46 by Cara Khanna) Father Family estrangement Mother Family estrangement Grandmother Hypertension Mental health problem Social History marital status: number of children: 1 household members: spouse and children lives independently: Yes caregiver/support person: Yes housing: apartment pets and animals: Yes (dog) education level: college (some college) 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) current occupational exposures/hazards: No special katy needs: No travel history: over 6 months ago seatbelt use: always water heater temp set < 120 deg: Yes working smoke detector in home: Yes fire extinguisher in home: Yes carbon monox detector in home: Yes firearms in home: No do you feel safe at home: Yes Smoking Status: Never smoker second hand exposure: No alcohol intake: former (1-2/week when not ) substance use type: does not use during the past year weight has: decreased > 10 lbs (~30lb r/t hyperthyroidism) well-balanced diet: daily or most days daily servings fruits/ve or more times/day caffeine: Yes (coffee/tea, usually 1/day) Type(s) of exercise: walking frequency: daily duration: 15-30 minutes/day Evaluation Evaluation Baseline heart rate: 125 Variability: Moderate (11-25) monitor accelerations: Present Monitor Decelerations: Absent Category of Tracing: Reactive Status: Category l Diagnosis, Plan/Disposition Final Diagnosis (1) 33 weeks gestation of : Status: Acute (2) Third trimester : Status: Acute (3) Hypertension affecting : Status: Acute Plan/Disposition Plan: Reactive nonstress test continue twice weekly NSTs and weekly visits OB Disposition: home
== END 2023-12-30 13:38 | disposition home or self-care (01) ==
LOC: LABOR 12:54 → OB 01-06 06:17
PROVIDERS: PCP Registered Nurse; Referring Provider Obstetrics & Gynecology; Visit Provider Obstetrics & Gynecology
DX: O16.3 Unspecified maternal hypertension, third trimester (principal); Z3A.33 33 weeks gestation of pregnancy
CPT/HCPCS: 59025; G0378; G0379

== ENCOUNTER 2024-01-06 13:45 | Outpatient (CLI) | payer OTHER, SELFPAY | END 2024-01-06 14:42 | disposition home or self-care (01) | LOC: LABOR 14:41 → OB 01-08 15:45 | PROVIDERS: PCP Registered Nurse; Referring Provider Obstetrics & Gynecology; Visit Provider Obstetrics & Gynecology | DX: O13.3 Gestational [pregnancy-induced] hypertension without significant proteinuria, third trimester (principal); Z3A.34 34 weeks gestation of pregnancy; Z34.83 Encounter for supervision of other normal pregnancy, third trimester | CPT/HCPCS: 59025; 87653; G0378; G0379 ==

== ENCOUNTER → 2024-01-06 15:21 | Outpatient (CLI) | payer OTHER, SELFPAY ==
[2024-01-07 19:59] LABS: Strep Grp B PCR NEG for Grp B Strep
== END ==
PROVIDERS: PCP Registered Nurse; Visit Provider Obstetrics & Gynecology
DX: Z34.83 Encounter for supervision of other normal pregnancy, third trimester (principal)
CPT/HCPCS: 87653

== ENCOUNTER 2024-01-20 11:30 | Outpatient (CLI) | payer OTHER, SELFPAY | END 2024-01-20 13:12 | disposition home or self-care (01) | LOC: LABOR 12:51 → OB 01-22 10:27 | PROVIDERS: PCP Registered Nurse; Referring Provider Obstetrics & Gynecology; Visit Provider Obstetrics & Gynecology | DX: O13.3 Gestational [pregnancy-induced] hypertension without significant proteinuria, third trimester (principal); Z3A.36 36 weeks gestation of pregnancy | CPT/HCPCS: 59025; G0378; G0379 ==

== ENCOUNTER 2024-01-26 19:31 | Inpatient (IN) | payer OTHER, SELFPAY ==
[2024-01-26 20:31] VITALS: BP 138/82
[2024-01-26 21:54] LABS: Add Manual Diff / Slide Review NO; Basophils Absolute Auto 100 /uL (0-100); Basophils Percent Auto 0.6 % (0-2); Eosinophils Absolute Auto 200 /uL (0-450); Eosinophils Percent Auto 1.4 % (2-4); Hematocrit 35.8 % (36-46); Hemoglobin 11.9 g/dL (12.0-16.0); Lymphocytes Absolute Auto 2500 /uL (1100-4500); Mean Corpuscular HGB Conc 33.2 % (30-36); Mean Corpuscular Hemoglobin 28.1 PG (26-34); Mean Corpuscular Volume 84.6 fL (80-100); Monocytes Absolute Auto 800 /uL (0-900); Monocytes Percent Auto 7.6 % (3-14); Neutrophils Absolute Auto 7400 /uL (1500-7000); Neutrophils Percent Auto 67.4 % (50-75); Platelet Count 220 X10^3/uL (150-400); Red Blood Cell Count 4.23 X10^6/uL (4.0-5.2); Red Cell Distribution Width 13.6 % (11.6-14.8)
[2024-01-26] MEDS: DINOPROSTONE VAG (CERVIDIL) 10 MG VAG (22:04)
[2024-01-26] MEDS: ZOLPIDEM 5 MG TABLET PO (22:04)
--- NOTE | 2024-01-27 09:17 | P.HPOB_ITS ---
OB HPI Date/Time Date of admission: 01/26/24 Date Patient Seen: 01/27/24 Time Patient Seen: 08:30 History of Present Condition Chief complaint: Induction EVELYN Calculator 2 Estimated Delivery Date Method Current WG Current Estimate 02/14/24 LMP (Certain) 37w 3d Other Estimates 02/13/24 Ultrasound #1 37w 4d Estimated Gestational Age (weeks): 37+3 : 2 Para: 1 care: good care, initiated at week #, number of visits and pounds weight gain Dating criteria OB: LMP confirmed by 1st trimester US Ultrasounds: normal 1st trimester US and normal mid trimester US Obstetrical complications: gestational hypertension Medical complications OB: other (Hyperthyroidism, thyroid cancer) Indications Indication for induction OB: gestational HTN/pre-eclampsia Preadmission Labs Last OB Lab Results: 2 Blood Type O Negative 01/26/24 19:45 Antibody Screen Negative 01/26/24 19:45 Hematocrit 35.8 % (36-46) L 01/26/24 19:45 Hemoglobin 11.9 g/dL (12.0-16.0) L 01/26/24 19:45 Hepatitis B Surface Antigen Negative s/c (NEGATIVE) 07/04/23 07 :24 Hepatitis C Antibody Reactive s/c (NEGATIVE) H 07/04/23 07:24 Rubella Antibody 106.0 IU/mL (>15) 07/04/23 07:24 Varicella-Zoster IgG Antibody 715 index (Immune >165) 07/04/23 07:24 Glucose 1 Hour 134 mg/dL (76-139) 11/06/23 09:34 Group B Streptococcus (PCR) Neg for grp b strep 01/06/24 15:21 -: Chlamydia screen: negative, Gonorrhea screen: negative and Urine: negative -: PAP smear: Normal Genetic Screens: Quad screen: Normal External Labs -: Urine: negative Prior (ies) Past Pregnancies Del. Date GA/Weeks Labor Lgth Wt Sex Route Outcome Anesthesia Place Delv Breastfeed Preg Comp Name 07/01/22 37 1 8 lb 7 oz Male vaginal live - full ter m epidural [place] N/A induced hyper- other [place] Delivery Date: 07/01/22 Last Updated by: Ava Robbins RN hyperemesis. Induced for PIH, active labor only ~1 hour. Rh neg w/ partial abruption and reactivity. Evaluation Evaluation Baseline heart rate: 140 Variability: Moderate (11-25) monitor accelerations: Present Monitor Decelerations: Absent Contraction Frequency (minutes): 6 Uterine Contraction Intensity: Mild Dilation (cm): 3 Effacement (%): 80 station: -1 Position of cervix: mid Consistency: soft [facility] Medical History (Updated 01/20/24 @ 12:24 by Jessica Giraldo MD) Eczema (~1998) Asthma (~2001) Anxiety (~2021) Pyelonephritis (~03/2023) Sepsis (~03/2023) anxiety Depression (~2012) Hypothyroidism PIH ( induced hypertension) Surgical History [place] teeth extracted Family History (Updated 07/16/23 @ 20:46 by Cara Khanna) Father Family estrangement Mother Family estrangement Grandmother Hypertension Mental health problem Social History marital status: number of children: 1 household members: spouse and children lives independently: Yes caregiver/support person: Yes housing: apartment pets and animals: Yes (dog) education level: college (some college) occupational status: employed ([employer]) current occupational exposures/hazards: No special katy needs: No travel history: over 6 months ago seatbelt use: always water heater temp set < 120 deg: Yes working smoke detector in home: Yes fire extinguisher in home: Yes carbon monox detector in home: Yes firearms in home: No do you feel safe at home: Yes Smoking Status: Never smoker second hand exposure: No alcohol intake: former (1-2/week when not ) substance use type: does not use during the past year weight has: decreased > 10 lbs (~30lb r/t hyperthyroidism) well-balanced diet: daily or most days daily servings fruits/ve or more times/day caffeine: Yes (coffee/tea, usually 1/day) Type(s) of exercise: walking frequency: daily duration: 15-30 minutes/day Meds Home Medications and Allergies Home Medications Medication Instructions Recorded Confirmed Type propylthiouracil 50 mg tablet 100 mg (2 x 50 mg) PO TID #90 tabs 06/25/23 01/27/24 Rx pyridoxine (vitamin B6) 100 mg 100 mg PO DAILY PRN nausea 06/25/23 01/27/24 History tablet ondansetron 4 mg disintegrating 4 mg PO Q6H PRN nausea and 10/20/23 01/27/24 Rx tablet vomiting #20 tabs nifedipine 30 mg tablet,extended 30 mg PO BID #60 tabs 12/18/23 01/27/24 Rx release Allergies Allergy/AdvReac Type Severity Reaction Status Date / Time No Known Drug Allergies Allergy Verified 01/20/24 10:46 OB Exam Narrative Exam Narrative: Generally: Patient is sitting up in bed, no acute distress Fundal height: 39 cm Estimated weight: 8 lb Extremities: 1+ edema Objective Labs 01/26/24 19:45 Labs: Laboratory Results - last 24 hr 01/26/24 19:45 WBC 11.0 RBC 4.23 Hgb 11.9 L Hct 35.8 L MCV 84.6 MCH 28.1 MCHC 33.2 RDW 13.6 Plt Count 220 Neut % (Auto) 67.4 Lymph % (Auto) 23.0 L [place] % (Auto) 7.6 Eos % (Auto) 1.4 L Baso % (Auto) 0.6 Neut # (Auto) 7400 H Lymph # (Auto) 2500 [place] # (Auto) 800 Eos # (Auto) 200 Baso # (Auto) 100 Blood Type O Negative Antibody Screen Negative Antibody Identification Cancelled Assessment and Plan Assessment and Plan Assessment and Plan narrative: Assessment: 23-year-old 2 para 1 at 37-,3/7 weeks gestation with gestational hypertension, hypothyroidism, thyroid cancer Status post Cervidil cervical ripening Favorable cervix Plan: Begin Pitocin augmentation Epidural as necessary Artificial rupture of membranes when able Expected management to spontaneous vaginal delivery Time Spent with Patient Total time spent with greater than 50% in coordination of care (as documented) at patient's floor/unit and/or counseling patient:: 15-24 minutes
[2024-01-27] MEDS: LACTATED RINGERS 1,000 ML 100 ML IV ×2 (10:25→12:44)
[2024-01-27] MEDS: OXYTOCIN PREMIX 30 UNIT/500 ML PLAST..BAG IV (10:37)
--- NOTE | 2024-01-27 13:08 | PM.AN.REGBLK ---
Regional Block Pre-procedure PMH/ROS narrative: Obesity 313lb Thyriod CA scheduled at [facility] for excision after delivery. Hep C antibodies PSH/Anesthesia history narrative: Vaginal delivery for 1st baby ASA Class: III Labs: Hct 35.8 % (36-46) L 01/26/24 19:45 Plt Count 220 X10^3/uL (150-400) 01/26/24 19:45 Medications: Current Medications Generic Name Dose Route Start Last Admin Trade Name Joaquina PRN Reason Stop Dose Admin Calcium Carbonate 1,000 mg 01/26/24 19:45 Calcium Carbonate 500 Mg Tab PO Q4HR PRN Dyspepsia Carboprost Tromethamine 250 mcg 01/26/24 19:45 Carboprost 250 Mcg/Ml Ampul IM Q90M PRN Bleeding Fentanyl 50 mcg 01/26/24 19:45 Fentanyl 100 Mcg/2 Ml Inj IV Q1H PRN Pain, Moderate (4-6) Oxytocin/Lactated Ringer's 30 unit in 500 mls @ 2 mls/hr 01/26/24 19:45 01/27/24 10:37 Oxytocin Premix IV 2 milliunit/min TITRATE BEBE 2 mls/hr Administration Protocol 2 MILLIUNIT/MIN Oxytocin/Lactated Ringer's 30 unit in 500 mls @ 200 mls/hr 01/26/24 19:45 Oxytocin Premix IV CONT PRN Bleeding Protocol Tranexamic Acid 1,000 mg/ 100 mls @ 200 mls/hr 01/26/24 19:45 Sodium Chloride IV NOW PRN Bleeding Lactated Ringer's 1,000 mls @ 100 mls/hr 01/26/24 19:45 01/27/24 12:44 Lactated Ringers IV 100 mls/hr CONT BEBE Administration Lidocaine HCl 20 ml 01/26/24 19:45 Lidocaine 1% 20 Ml INJ INTRA-OP PRN Post Delivery Methylergonovine Maleate 0.2 mg 01/26/24 19:45 Methylergonovine 0.2 Mg/Ml Vial IM NOW PRN Bleeding Methylergonovine Maleate 0.2 mg 01/26/24 19:45 Methylergonovine 0.2 Mg Tablet PO Q6HR PRN Heavy Bleeding Misoprostol 400 mcg 01/26/24 19:45 Misoprostol 200 Mcg Tablet SL NOW PRN Bleeding Misoprostol 800 mcg 01/26/24 19:45 Misoprostol 200 Mcg Tablet MO NOW PRN Bleeding Naloxone HCl 0.2 mg 01/26/24 19:45 Naloxone 0.4 Mg/Ml Vial IV Q2MIN PRN Opiate Reversal Ondansetron HCl 4 mg 01/26/24 19:45 Ondansetron 4 Mg/2 Ml Inj IV Q4HR PRN Nausea And Vomiting Oxytocin 10 unit 01/26/24 19:45 Oxytocin 10 Unit/Ml Vial IM NOW PRN Bleeding Zolpidem Tartrate 5 mg 01/26/24 21:55 01/26/24 22:04 Zolpidem 5 Mg Tablet PO 5 mg BEDTIME PRN Administration Sleep Allergies: Allergies Allergy/AdvReac Type Severity Reaction Status Date / Time No Known Drug Allergies Allergy Verified 01/20/24 10:46 Procedure Insertion date: 01/27/24 Insertion time: 11:47 Prep/Local: 1% lidocaine (Chloroprep) Interspace: L3-4 Patient position: sitting (Feet on chair) Needle: 18 gauge Hustead (5inch) Loss of resistance with: saline NANCI at (cm): 8 Catheter placed at SKIN (cm): 12 Catheter in SPACE (cm): 4 Insertion: No CSF, No Blood, No Paresthesia with insertion, No Paresthesia with injection and No Test dose reaction Initial Medications TEST DOSE time: 11:48 Infusion Initial rate (mL/hr): 11 Post-procedure Anesthesia date START: 01/27/24 Anesthesia time START: 11:25
--- NOTE | 2024-01-27 13:13 | PM.OBPNLAB ---
Date/Time Date Patient Seen: 01/27/24 Time Patient Seen: 13:13 Pain Control Pain control: epidural Pelvic Exam Dilation (cm): 5 Effacement (%): 80 station: -1 Amniotic membrane status: Intact Contractions Contractions on admission: none Monitor mode: External Pitocin rate (mU/min): 8 Contraction frequency (min): 4 Contraction pattern: Regular Contraction intensity: Moderate Status status: Category l Heart Rate Baseline: 140 Monitor Accelerations: Present Monitor Decelerations: Absent Monitor Variability: Moderate Assessment and Plan Assessment: induction ongoing Comments: FSE placed after AROM with copious clear fluid
[2024-01-27] MEDS: FENT 2MCG/ML BUPIV 0.125% EPI 200 MCG/100 ML PLAST..BAG 6 MCG EPIDURAL (18:00)
--- NOTE | 2024-01-27 19:13 | PM.OBPNLAB ---
Date/Time Date Patient Seen: 01/27/24 Time Patient Seen: 18:30 Pain Control Pain control: epidural Pelvic Exam Dilation (cm): 7 Effacement (%): 85 station: -1 Amniotic membrane status: Ruptured Contractions Contractions on admission: none Monitor mode: External Pitocin rate (mU/min): 10 Contraction frequency (min): 3 Contraction duration (min): 1 Contraction pattern: Regular Contraction intensity: Strong/Firm Status status: Category l Heart Rate Baseline: 140 Monitor Accelerations: Present Monitor Decelerations: Absent Monitor Variability: Moderate Assessment and Plan Assessment: active labor Comments: IUPC placed to assess adequacy of contractions Expectant management to
--- NOTE | 2024-01-27 20:40 | PM.OBPNLAB ---
Date/Time Date Patient Seen: 01/27/24 Time Patient Seen: 20:40 Pain Control Pain control: epidural Pelvic Exam Dilation (cm): 8 Effacement (%): 90 station: +1 Amniotic membrane status: Ruptured Contractions Contractions on admission: none Monitor mode: External Pitocin rate (mU/min): 10 Contraction frequency (min): 3 Contraction duration (min): 1 Contraction pattern: Regular Contraction intensity: Strong/Firm Intrauterine tone measurement: 180 Status status: Category l Heart Rate Baseline: 140 Monitor Accelerations: Present Monitor Decelerations: Absent Monitor Variability: Moderate Assessment and Plan Assessment: active labor Plan: continuous present management Comments: Side to side Expectant management to
--- NOTE | 2024-01-27 21:50 | PM.OBPRVD ---
Events: Induced HTN Labor & Delivery Delivery date: 01/27/24 Intrapartal Events: None Cervical ripening method: per Cervidil protocol Induction method: per pitocin protocol Delivery augmentation: rupture of membranes Delivery monitor: external FHT and external uterine Route of delivery: Episiotomy description: None L&D Laceration Description: Perineal - 1st Degree and Vaginal - 1st Degree Delivery repair: chromic Quantitative Blood Loss: 650 Anesthesia Type: Epidural Complications: None Narrative: Patient complete and pushed with 2 contractions. At 2110, a live male delivered spontaneously in the KIRSTEN presentation, over an intact perineum. No nuchal cord. The remainder of the body delivered without difficulty and was placed on mom's abdomen. Slightly short cord. Pitocin was given in the IVF's. The cord was double-clampled and cut. Cord bloods were obtained. The placenta delivered intact with a 3 vessel cord at 2117. Fundus was massaged to firm. A first degree vaginal/perineal laceration was noted and repaired with 2-0 Chromic. Hemostasis was achieved. QBL: 650cc. Apgars 9 at 1 minute and 9 at 5 minutes. Epidural analgesia. . Mom and infant stable to recovery. Baby 1: gender: Male Presentation: vertex Position: Right Occiput Anterior Placenta delivery description: Spontaneous Cord Vessel Description: 3 Vessels score (1 min): 9 score (5 min): 9 weight: 7 lb 15.6 oz Plan for aftercare: Routine care
[2024-01-28] MEDS: DERMOPLAST SPRAY 20% 60 ML 1 SPRAY TOP (00:46)
[2024-01-28] MEDS: LANOLIN OINT 7 GM 1 APPLIC TOP (00:47)
[2024-01-28] MEDS: IBUPROFEN 600 MG TABLET PO ×3 (00:47→12:09)
[2024-01-28] MEDS: ACETAMINOPHEN 325 MG TABLET 650 MG PO ×3 (00:47→12:10)
[2024-01-28 05:11] LABS: Hematocrit 33.5 % (36-46); Hemoglobin 11.5 g/dL (12.0-16.0)
--- NOTE | 2024-01-28 09:19 | P.DS_ITS ---
Discharge Providers Provider Date of admission: 01/26/24 19:31 Discharge Date: 01/28/24 Primary care physician: EDUARDO Rodriguez Consults: 01/26/24 19:45 Consult to Anesthesiology Urgent Comment: Consulting Provider: Anesthesiologist Reason for consultation: Epidural Has provider been notified: No 01/28/24 21:48 Consult to Lining Printer Routine Comment: Discharge provider: Rukhsana Dacosta DO Summary Hospital Course Date Patient Seen: 01/28/24 Time Patient Seen: 09:19 Diagnoses: Term gestation at 37+3wks Chronic hypertension Hyperthyroidism Thyroid carcinoma Rh negative status Obesity in Hospital Course: 23yo [id number] admitted at 37+3wks for induction of labor due to chronic hypertension on medication, with history of preeclampsia. Her delivery was uncomplicated, and productive of a viable male infant with Apgars 9/9. Her course was unremarkable. On day #1, she was ambulating, tolerating regular diet, voiding spontaneously with minimal lochia. Her pain was well controlled with oral medications, thus she was discharged to home on day #1, with plan for blood pressure check in clinic in 2 days. Peripartum Data Delivery Method: Natural Vaginal Laceration Description: Perineal - 1st Degree Procedures: External monitoring Induction of labor Epidural anesthesia Spontaneous vaginal delivery Perineal laceration repair complications: none Discharge Diagnosis (1) Chronic hypertension affecting : Status: Acute (2) Morbid obesity due to excess calories: Status: Acute (3) Thyroid cancer: Status: Acute (4) Rh negative state in antepartum period: Status: Acute Problem Details: Antibody screen negative in 1st trimester (5) Hyperthyroidism affecting : Status: Acute (6) Vaginal delivery: Status: Acute Status at Discharge Cognitive/behavioral status at discharge: oriented Functional status at discharge: independent ambulation Overall status at discharge: patient is progressing back to baseline Time Spent with Patient Time attestation: Total time spent providing and/or coordinating discharge services: Time spent: Less than 30 minutes Objective Labs 01/28/24 04:57 Labs: Laboratory Results - last 24 hr 01/26/24 01/28/24 21:15 04:57 Hgb 11.5 L Hct 33.5 L Blood Type O Negative Antibody Screen Negative Antibody Identification Cancelled Exam Vital Signs (past 8 hours): vitals reviewed in OBIX, some mild range blood pressures, majority normal range Const General: cooperative, healthy appearing, comfortable and No acute distress Resp Effort & Inspection: normal respiratory effort GI Inspection: normal to inspection Other: fundus firm and nontender at U-2 Skin General: no rashes or lesions noted Neuro General: patient alert and patient awake Extrem General: normal to inspection, no pedal edema and no calf tenderness Psych Mood: congruent mood Affect: normal affect Discharge Plan Discharge Plan Patient Disposition: Home Provider Discharge Comment: Take ibuprofen 600 mg every 6 hours and Tylenol 650 mg every 6 hours as needed for pain. Please follow-up in clinic in 2 days for a blood pressure check. In the interim, be monitoring for new headaches, vision changes, right upper abdominal pain, chest pain or shortness of breath; call the clinic or after hours number if you experience these symptoms. Avoid placing anything in the vagina for 6 weeks. Discharge orders & Medications Prescriptions: Continued propylthiouracil 50 mg tablet 100 mg PO TID Qty: 90 2RF nifedipine 30 mg tablet extended release 30 mg PO BID Qty: 60 0RF Discontinued ondansetron 4 mg tablet,disintegrating 4 mg PO Q6H PRN (Reason: nausea and vomiting) Qty: 20 1RF pyridoxine (vitamin B6) 100 mg tablet 100 mg PO DAILY PRN (Reason: nausea) Follow up/Referrals: Jessica Giraldo MD [Physician] - (Please follow-up for a BP check with the nurse on 01/30/24 @ 1030) Caterina Silva ARNP [Primary Care Provider] - Diet/Activity/Treatments Diet: Diet as Tolerated Activity: As tolerated Skin/Wound/Dressing Care Report to your healthcare provider any signs of infection, such as:: chills, fever, increased pain and unusual drainage Visit Report/Discharge Packet Instructions: DI for Labor and Delivery, Vaginal Stand Alone Forms: Patient Portal/API, Stroke Signs & Symptoms Discharge Data Primary Care Provider: Caterina Silva
[2024-01-28] MEDS: RHO(D) IMMUNE GLOBULIN 1,500 UNIT SYRINGE 1500 UNIT IM (14:57)
== END 2024-01-28 16:45 | disposition home or self-care (01) | DRG 807 ==
PROVIDERS: Admitting Provider Obstetrics & Gynecology; PCP Registered Nurse; Referring Provider Obstetrics & Gynecology; Visit Provider Obstetrics & Gynecology
DX: O13.4 Gestational [pregnancy-induced] hypertension without significant proteinuria, complicating childbirth (principal); Z37.0 Single live birth; O70.0 First degree perineal laceration during delivery; O99.214 Obesity complicating childbirth; E66.01 Morbid (severe) obesity due to excess calories; Z3A.37 37 weeks gestation of pregnancy
CPT/HCPCS: 36415; 59050; 59200; 59400; 59409; 85014; 85018; 85025; 86850; 86900; 86901; G0379; J2590; J2790

== ENCOUNTER → 2024-04-16 11:26 | Outpatient (CLI) | payer OTHER, MEDICAID, SELFPAY ==
[2024-04-16 17:42] LABS: Calcium 8.8 mg/dL (8.4-10.2)
== END ==
PROVIDERS: PCP Registered Nurse; Referring Provider Otolaryngology; Visit Provider Otolaryngology
DX: O99.280 Endocrine, nutritional and metabolic diseases complicating pregnancy, unspecified trimester (principal); E07.9 Disorder of thyroid, unspecified
CPT/HCPCS: 36415; 82310

== ENCOUNTER 2024-07-19 16:01 | Emergency (ER) | payer OTHER, SELFPAY ==
[2024-07-19] VITALS (9 sets, daily range): BP systolic 140–164; BP diastolic 76–90; PULSE 77–97; RESP 16–20; TEMP 36.7; O2SAT 93–100; BMI 49.4
[2024-07-19 19:43] LABS: RBC Urine >100/HPF (0-5/HPF); Urine Volume 10mL (spun)
[2024-07-19 19:44] LABS: Bacteria Urine Many (>30); Culture Indicated Urine Specimen Cultured; Squamous Epithelial Cell Urine 1-5 /HPF (0-5/HPF); Transitional Epi Cells Urine 1-5/HPF (0-5/HPF); WBC Urine 30-100/HPF (0-5/HPF); White Blood Cell Casts Urine 1-5/LPF
--- NOTE | 2024-07-19 20:50 | ED_ITS ---
HPI - Female Genitourinary General Chief complaint: Urogenital-Female Stated complaint: Hurt back Time Seen by Provider: 07/19/24 20:42 Source: patient Mode of arrival: Ambulatory History of Present Illness HPI Narrative: 24-year-old female with a history of pyelonephritis and sepsis as well as thyroid disease presenting with low back pain hematuria dysuria and frequency. Says it is low back pain started a couple of days ago when she bent over and she felt a ?pop? in her back. Subsequently also noticed some dysuria and blood in her urine. Has an IUD in place, has not been having fevers or vomiting. Related Data Previous Rx's Medication Instructions Recorded propylthiouracil 50 mg tablet 100 mg (2 x 50 mg) PO TID #90 tabs 06/25/23 nifedipine 30 mg tablet,extended 30 mg PO BID #60 tabs 12/18/23 release cyclobenzaprine 10 mg tablet 10 mg PO TID PRN muscle spasm #20 07/19/24 tabs sulfamethoxazole 800 1 tab PO BID #10 tabs 07/19/24 mg-trimethoprim 160 mg tablet (Bactrim DS) Allergies Allergy/AdvReac Type Severity Reaction Status Date / Time No Known Drug Allergies Allergy Verified 01/20/24 10:46 Patient History Medical History (Updated 07/19/24 @ 22:23 by Elvis Contreras MD) Eczema (~1998) Asthma (~2001) Anxiety (~2021) Pyelonephritis (~03/2023) Sepsis (~03/2023) anxiety Depression (~2012) Hypothyroidism PIH ( induced hypertension) Surgical History [place] teeth extracted Family History (Updated 07/16/23 @ 20:46 by Cara Khanna) Father Family estrangement Mother Family estrangement Grandmother Hypertension Mental health problem alcohol intake frequency: a few times a week Substance Use Type: does not use Exam Narrative Exam Narrative: Obese female who appears to be in no distress. She is good range of motion her lower extremities and hips. Normal heart rate, normal respiratory effort. Mildly hypertensive. Does not have CVAT does not have focal midline tenderness of the spine. Motor is intact in the lower extremities sensation is intact in lower extremities Initial Vital Signs Initial Vital Signs: Vital Signs Temperature 98.0 F 07/19/24 16:11 Pulse Rate 97 H 07/19/24 16:11 Respiratory Rate 20 07/19/24 16:11 Blood Pressure 154/90 H 07/19/24 16:11 Pulse Oximetry 100 07/19/24 16:11 Oxygen Delivery Method Room Air 07/19/24 16:11 Course Orders Ordered: ED Orders 07/19/24 16:26 Test Urine Stat Urine Culture Stat Urine Microscopic Stat 07/19/24 20:49 CT kidney ureter bladder (KUB) Stat Discontinued Medications Trimethoprim/Sulfamethoxazole (Trimeth/Sulfa 160/800 (Ds) Tablet) 1 tab PO NOW ONE Stop: 07/19/24 22:18 Vital Signs Vital signs: Vital Signs - 8 hr 07/19/24 16:11 07/19/24 20:16 07/19/24 20:23 Temperature 98.0 F Pulse Rate 97 H 84 Respiratory Rate 20 18 Blood Pressure 154/90 H 140/76 164/78 H Pulse Oximetry 100 100 Oxygen Delivery Method Room Air Room Air 07/19/24 20:23 07/19/24 20:25 07/19/24 20:30 Temperature 98.1 F Pulse Rate 77 83 Respiratory Rate 16 Blood Pressure 164/78 H Pulse Oximetry 100 100 100 Oxygen Delivery Method Room Air 07/19/24 21:00 07/19/24 21:30 Temperature Pulse Rate 80 80 Respiratory Rate Blood Pressure Pulse Oximetry 100 100 Oxygen Delivery Method MDM - Female Genitourinary Lab Data Lab results narrative: test is negative, urinalysis pyuria Labs: Lab Results 07/19/24 Range/Units 16:26 Urine RBC >100/hpf H (0-5/HPF) Urine WBC 30-100/hpf H (0-5/HPF) Ur Squamous Epith Cells 1-5 /hpf (0-5/HPF) Ur Transition Epith Cell 1-5/hpf (0-5/HPF) Urine Bacteria Many (>30) H (None) WBC Casts 1-5/lpf H (None) Ur Culture Indicated? Specimen cultured Vol Urine Centrifuged 10ml (spun) Urine Test Negative (Negative) Urine Dip Bedside Urine Glucose Negative Bedside Urine Bilirubin - Negative Bedside Urine Ketone - Negative Urine Specific [place] 1.020 Bedside Urine Occult Blood +++ Bedside Urine pH 6.0 Bedside Urine Protein ++ 100 Bedside Urine Urobilinogen - Negative Bedside Urine Nitrite + Positive Bedside Urine Leukocytes ++ [address] scan - abdomen/pelvis: My Impression: Independent review CT KUB, no acute findings Radiologist's Impression: [address] [address] [address] Scan Report Signed Patient: Claudia Jimenez MR#: [id number] : 2000 Acct:[id number] Age/Sex: 24 / F Date of Service: 07/19/24 Loc: ED Accession Number: [id number] Procedure: CT kidney ureter bladder (KUB) Ordering Provider: Elvis Contreras MD PROCEDURE: CT KIDNEY URETER BLADDER (KUB) INDICATIONS: flank pain and hematuria TECHNIQUE: Axial sections were acquired from the lung bases to the pubic symphysis. Coronal and sagittal reformats were performed. For radiation dose reduction, the following was used: automated exposure control, adjustment of mA and/or kV according to patient size. COMPARISON: [facility], CT, CT KUB, 03/31/2023, 20:21. FINDINGS: Image quality: Diagnostic. Lower Chest: No significant findings. URINARY: Right Kidney: No stones or hydronephrosis. Right Ureter: No hydroureter. Left Kidney: No stones or hydronephrosis. Left Ureter: No hydroureter. Bladder: Normal wall thickness. No stones. ABDOMEN: Liver: No contour-deforming solid mass. Gallbladder: Mild layering hyperdensity, may represent gallbladder sludge. No evidence of acute cholecystitis. Biliary ducts: No biliary dilation. Pancreas: No ductal dilation. Spleen: Size is within normal limits. Adrenal Glands: No adrenal nodules. Stomach and Bowel: Normal colonic caliber, without significant wall thickening. Normal appendix. Peritoneum: No abnormal intraperitoneal fluid. No free air. Ventral Wall: Tiny fat containing umbilical hernia. Abdominal Nodes: No enlarged retroperitoneal or mesenteric lymph nodes. Vessels: Aorta and inferior vena cava are normal in size. PELVIS: Pelvic Organs: Intrauterine device in place.. Pelvic Nodes: Unremarkable. Miscellaneous: No inguinal hernias are seen. Bones: Unremarkable. IMPRESSION: No obstructing stones or hydronephrosis. No acute findings within the abdomen or pelvis. Normal appendix. Dictated by: Parker Toney M.D. on 07/19/2024 at 21:43 Approved by: Parker Toney M.D. on 07/19/2024 at 21:4 MDM Narrative Medical decision making narrative: 24-year-old female with a history of sepsis related to pyelonephritis here with acute onset of hematuria and low back pain. Low back pain does not really lateralize strongly and has a character musculoskeletal pain considered the possibility of pyelonephritis and/or ureteral stone. CT was obtained and no stone is seen. Patient does not appear systemically ill at present time started her on Bactrim. Urine was sent for culture Discharge Plan Departure Patient Disposition: Home Clinical Impression: Cystitis Back pain Qualifiers: Back pain location: low back pain Chronicity: acute Back pain laterality: bilateral Sciatica presence: without sciatica Qualified Code(s): M54.50 - Low back pain, unspecified Instructions: DI for Urinary Tract Infection (UTI) Activity Restrictions/Additional Instructions: Workup today does not suggest your back pain and urinary symptoms are related. I have started you on an antibiotic, Bactrim to cover your urinary tract infection. Continue with ibuprofen 600 mg 3 times a day and acetaminophen (Tylenol) 650-1000 mg 3 to 4 times a day. I have also sent a prescription for muscle relaxer that you can use for your back pain. Activity as tolerated. Follow up soon with her primary care provider. If you have fevers, frequent vomiting or other acute symptoms return to the emergency department Prescriptions: New sulfamethoxazole-trimethoprim [Bactrim DS] 800-160 mg tablet 1 tab PO BID Qty: 10 0RF cyclobenzaprine 10 mg tablet 10 mg PO TID PRN (Reason: muscle spasm) Qty: 20 0RF No Action propylthiouracil 50 mg tablet 100 mg PO TID Qty: 90 2RF nifedipine 30 mg tablet extended release 30 mg PO BID Qty: 60 0RF Referrals: Caterina Sivla ARNP [Primary Care Provider] - Stand Alone Forms: Patient Portal/API
[2024-07-19 21:15] LABS: Pregnancy Test Urine Negative (Negative)
[2024-07-19] MEDS: TRIMETH/SULFA 160/800 (DS) TABLET 1 TAB PO (22:37)
== END 2024-07-19 22:33 | disposition home or self-care (01) ==
PROVIDERS: Emergency Medicine; Emergency Provider Emergency Medicine; PCP Registered Nurse
DX: N30.91 Cystitis, unspecified with hematuria (principal); M54.50 Low back pain, unspecified
CPT/HCPCS: 74176; 81003; 81015; 81025; 87077; 87086; 87186; 99283; 99284

== ENCOUNTER → 2024-10-15 14:33 | Outpatient (CLI) | payer OTHER, SELFPAY ==
[2024-10-15 15:39] LABS: Calcium 8.9 mg/dL (8.4-10.2)
[2024-10-15 15:57] LABS: Free T4, Direct Thyroxine 1.69 ng/dL (0.78-2.19)
[2024-10-15 16:11] LABS: Thyroid Stimulating Hormone < 0.015 uIU/mL (0.47-4.68)
== END ==
PROVIDERS: PCP Registered Nurse; Referring Provider Internal Medicine Endocrinology, Diabetes & Metabolism; Visit Provider Internal Medicine Endocrinology, Diabetes & Metabolism
DX: O99.280 Endocrine, nutritional and metabolic diseases complicating pregnancy, unspecified trimester (principal); C73 Malignant neoplasm of thyroid gland; E07.9 Disorder of thyroid, unspecified
CPT/HCPCS: 36415; 82310; 84439; 84443

== ENCOUNTER → 2025-03-31 14:49 | Outpatient (CLI) | payer OTHER, SELFPAY ==
--- NOTE | 2025-03-31 14:50 | DI.CT.S_ITS ---
PROCEDURE: CT SOFT TISSUE NECK W CON INDICATIONS: Enlarged node on r inferior neck TECHNIQUE: After the administration of intravenous contrast, 3.0 mm axial sections acquired from the sella to the aortic arch. Additional oblique axial 3.0 mm sections acquired through the pharynx. 3 mm thick coronal and sagittal reformats were generated. For radiation dose reduction, the following was used: automated exposure control. COMPARISON: None. FINDINGS: Image quality: Excellent. Lymph nodes: A marker was placed on the right inferior lateral neck. Deep to the marker are several adjacent lymph nodes with the largest measuring 9 mm in short axis (2/38) (level 5B lymph node station). Vessels: Visualized vasculature appears patent. Neck spaces: Surgical clips along the right neck. The oropharynx, nasopharynx, and pharynx demonstrate no mucosal lesions. The vocal cords, false vocal cords, pyriform sinuses, epiglottis, vallecula, and tongue base all appear normal. Extramucosal spaces appear unremarkable. Glands: The parotid and submandibular glands appear normal. Thyroid gland is surgically absent. Miscellaneous: Visualized brain and orbits appear normal. Lung apices appear clear. Superficial soft tissues appear normal. Bones: No suspicious bony lesions. Visualized sinuses and mastoids appear unremarkable. IMPRESSION: Deep to the marker on the inferior right lateral neck, there are several prominent lymph nodes measuring up to 9 mm in short axis. While these may be reactive, metastatic lymph nodes cannot be excluded. Further evaluation with fine-needle aspiration or short-term follow-up ultrasound is recommended. Dictated by: Parker Toney M.D. on 04/01/2025 at 16:25 Approved by: Parker Toney M.D. on 04/01/2025 at 16:30
== END ==
PROVIDERS: PCP Registered Nurse; Referring Provider Family Medicine; Visit Provider Family Medicine
DX: R22.1 Localized swelling, mass and lump, neck (principal)
CPT/HCPCS: 70491; Q9967

== ENCOUNTER → 2025-04-06 10:53 | Outpatient (CLI) | payer OTHER, SELFPAY ==
--- NOTE | 2025-04-06 11:08 | DI.US.S_ITS ---
PROCEDURE: US EXTREMELY NONVASC UPPER RT INDICATIONS: RT ARM MASS TECHNIQUE: Real-time scanning was performed of the right upper arm, with image documentation. COMPARISON: None. FINDINGS/IMPRESSION: No significant sonographic abnormality is seen at the pelvic area of concern. If there is continued clinical concern, consider MRI or CT for further evaluation. Approved by: Shon Patel M.D. on 04/06/2025 at 15:03
== END ==
PROVIDERS: PCP Registered Nurse; Referring Provider Registered Nurse; Visit Provider Registered Nurse
DX: M79.89 Other specified soft tissue disorders (principal)
CPT/HCPCS: 76882

== ENCOUNTER → 2025-10-03 10:28 | Outpatient (ROUT) | payer OTHER, SELFPAY ==
[2025-10-03 11:41] LABS: Influenza A - CEPHEID Flu A NEGATIVE (NEGATIVE); Influenza B - CEPHEID Flu B NEGATIVE (NEGATIVE)
[2025-10-03 11:50] LABS: COVID-19 CEPHEID 4-PLEX PCR Negative (Negative)
== END ==
PROVIDERS: PCP Registered Nurse; Visit Provider Registered Nurse
DX: R05.1 Acute cough (principal)
CPT/HCPCS: 87637